=== PATIENT | female | born 1935 | race Caucasian/White ===

== ENCOUNTER 2022-08-24 06:36 | Day surgery (SDC) | payer BC ==
[~2022-08-24] VITALS: Ht 157.5 cm; Wt 64.4 kg
[2022-08-24] MEDS ORDERED: CEFAZOLIN SOD 1 GM in D5W 50 ML IV ONE (07:00)
[2022-08-24] MEDS ORDERED: DEXAMETHASONE SOD PHOSPHATE 4 MG/ML VIAL ONE (09:19)
[2022-08-24] MEDS ORDERED: ceFAZolin SODIUM 1 GM VIAL ONE (09:19)
[2022-08-24] MEDS ORDERED: DESFLURANE 15 MIN GAS INH ONE (09:19)
[2022-08-24] MEDS ORDERED: LR 1,000 ML IV.SOLN IV ONE (09:19)
[2022-08-24] MEDS ORDERED: BUPIVACAINE /PF 0.25% 30 ML VIAL INJ ONE (09:19)
[2022-08-24] MEDS ORDERED: ACETAMINOPHEN I.V. 1000 MG /100 ML IVPB PREMIX IV ONE (09:19)
[2022-08-24] MEDS ORDERED: fentaNYL CITRATE 250 MCG/5 ML AMP ONE (09:19)
[2022-08-24] MEDS ORDERED: ONDANSETRON HCL 4 MG/2 ML VIAL ONE (09:19)
[2022-08-24] MEDS ORDERED: PROPOFOL 200MG/ 20ML VIAL (DIPRIVAN) IV ONE (09:19)
[2022-08-24] MEDS ORDERED: METOCLOPRAMIDE HCL 10 MG/2 ML VIAL ONE (09:19)
[2022-08-24] MEDS ORDERED: NS IRRIG SOLN 1000 ML IR ONE (09:19)
[2022-08-24] MEDS ORDERED: ACETAMINOPHEN I.V. 1000 MG 100 ML IV ONE (09:42)
[2022-08-24] MEDS ORDERED: ONDANSETRON HCL 4 MG/2 ML VIAL IVP PRN (09:45)
[2022-08-24] MEDS ORDERED: HYDROcodone/ACETAMIN 5-325 MG TAB (NORCO/ VICODIN) PO PRN ×2 (10:30)
[2022-08-24] MEDS ORDERED: D5/0.45 NS 1,000 ML IV SCH (10:30)
[2022-08-24 13:24] VITALS: BP_SYST 136
== END 2022-08-24 12:45 | disposition home or self-care (01) ==
LOC: SDS 06:36 → SMU 06:38 → SDS 12:45
PROVIDERS: ATTEND Colon & Rectal Surgery
DX: K40.30 Unilateral inguinal hernia, with obstruction, without gangrene, not specified as recurrent (principal); M81.0 Age-related osteoporosis without current pathological fracture; I12.9 Hypertensive chronic kidney disease with stage 1 through stage 4 chronic kidney disease, or unspecified chronic kidney disease; N18.30 Chronic kidney disease, stage 3 unspecified; E78.5 Hyperlipidemia, unspecified; M17.0 Bilateral primary osteoarthritis of knee; K21.9 Gastro-esophageal reflux disease without esophagitis; Z20.822 Contact with and (suspected) exposure to COVID-19; Z79.82 Long term (current) use of aspirin; Z79.899 Other long term (current) drug therapy
CPT/HCPCS: 36415 ×2; 49507; 87426; U0003; C1781 ×2; J3490; J0690; J1100; J2765; J2405; J2704; J3010; J7060; J7120; J0131